=== PATIENT | male | born 1935 | race Caucasian/White ===

== ENCOUNTER → 2019-01-21 15:19 | Outpatient (CLI) | payer MEDICARE, OTHER, SELFPAY ==
[2019-01-28 12:06] LABS: Clam <0.10 kU/L (Class 0); Codfish <0.10 kU/L (Class 0); Corn <0.10 kU/L (Class 0); Egg, White 0.45 kU/L (Class I); Milk (Cow) 0.34 kU/L (Class I); Peanut 0.11 kU/L (Class 0/I); SCALLOP <0.10 kU/L (Class 0); Shrimp <0.10 kU/L (Class 0); Soybean <0.10 kU/L (Class 0); Walnut, (Food) <0.10 kU/L (Class 0); Wheat <0.10 kU/L (Class 0)
[2019-01-28 15:10] LABS: SESAME SEED 0.16 kU/L (Class 0/I)
[2019-01-29 09:11] LABS: Immunoglobulin E 89 IU/mL (6-495)
== END ==
PROVIDERS: Referring Provider Otolaryngology Otolaryngology/Facial Plastic Surgery; Visit Provider Otolaryngology Otolaryngology/Facial Plastic Surgery
DX: T78.40XA Allergy, unspecified, initial encounter (principal)
CPT/HCPCS: 36415; 82785; 86003